=== PATIENT | female | born 1955 | race Caucasian/White ===

== ENCOUNTER → 2020-07-08 | Outpatient (CLI) | payer MEDICARE, OTHER ==
--- NOTE | 2020-07-08 09:24 | RAD ---
Examination: Ultrasound abdomen complete HISTORY: History of elevated liver function tests COMPARISON: None available FINDINGS: The echogenicity liver grossly appears unremarkable. The right lobe of the liver measures 11.9 cm.The common bile duct measures 2.1 mm in transverse dimension. No evidence of gallstones. The gallbladder wall thickness measures 1.9 mm. The right kidney measures 11.1 x 4.9 x 3.4 cm. The visualized pancre as grossly appears unremarkable. IMPRESSION: Unremarkable exam. Electronically signed by: Richar Rodney MD (07/08/2020 9:22 AM) [id number]
== END ==
LOC: US 07:38
PROVIDERS: ATTEND Family Medicine
DX: R79.89 Other specified abnormal findings of blood chemistry (principal)
CPT/HCPCS: 76705